=== PATIENT | male | born 1990 | race Caucasian/White ===

== ENCOUNTER 2021-05-09 07:28 | Day surgery (SDC) | payer MEDICAID ==
[~2021-05-09] VITALS: Ht 175.3 cm; Wt 106.8 kg
[~2021-05-09 07:28] MED LIST: HYDR-3686 PO; LORA1TAB PO; LURA20TA PO; MONT-40 PO
[2021-05-09] MEDS ORDERED: MIDAZolam 1 MG/ML 5ML VIAL ONE (07:44)
[2021-05-09] MEDS ORDERED: fentaNYL/PF 50MCG/1 ML 2ML syringe ONE (07:44)
[2021-05-09 07:45] VITALS: BP 147/91
[2021-05-09 08:46] VITALS: BP 142/89
[2021-05-09 08:53] VITALS: BP 130/78
[2021-05-09 09:03] VITALS: BP 131/75
[2021-05-09 09:13] VITALS: BP 132/76
== END 2021-05-09 09:35 | disposition home or self-care (01) ==
LOC: GI LAB 07:28
PROVIDERS: ATTEND Internal Medicine Gastroenterology
DX: K52.89 Other specified noninfective gastroenteritis and colitis (principal)
CPT/HCPCS: 45380; 99152; J2250; J3010; J7040; Z7512; 99153; A4620

== ENCOUNTER 2022-08-22 00:26 | Emergency (ER) | payer MEDICAID ==
[~2022-08-22] VITALS: Ht 175.3 cm; Wt 95.5 kg
[~2022-08-22 00:26] MED LIST changes: -HYDR-3686 PO; -LURA20TA PO; +LURA20TA8 PO; -MONT-40 PO
[2022-08-22 00:39] VITALS: BP 170/91
== END 2022-08-22 03:37 | disposition left against medical advice (07) ==
LOC: ER 00:26
DX: R05.9 Cough, unspecified (principal); Z53.21 Procedure and treatment not carried out due to patient leaving prior to being seen by health care provider
CPT/HCPCS: 99281

== ENCOUNTER 2022-10-19 23:40 | Emergency (ER) | payer MEDICAID ==
[~2022-10-19] VITALS: Ht 175.3 cm; Wt 94.4 kg
[2022-10-19 23:42] VITALS: BP 124/88
[2022-10-20] MEDS ORDERED: BENZ-38 PO (01:12)
[2022-10-20] MEDS ORDERED: AZIT-83 PO (01:12)
[2022-10-20] MEDS ORDERED: benzonatate 100mg capsule PO ONE (01:15)
[2022-10-20] MEDS ORDERED: azithromycin 250mg tablet PO ONE (01:15)
== END 2022-10-20 01:25 | disposition home or self-care (01) ==
LOC: ER 23:42
DX: R05.9 Cough, unspecified (principal); R42 Dizziness and giddiness; Z79.899 Other long term (current) drug therapy
CPT/HCPCS: 71045; 99283